=== PATIENT | female | born 1930 | race African-American/Black ===

== ENCOUNTER 2017-07-30 05:37 | Day surgery (SDC) | payer OTHER ==
[~2017-07-30] VITALS: Ht 162.6 cm; Wt 76.0 kg
[~2017-07-30 05:37] MED LIST: Aricept PO; Ascorbic Acid,Ester- PO; BIOTIN10 MG PO; CALCIUM 500 +1 EACH PO; CELEBREX200 MG PO; CENTRUM SILVER1 EAC3 PO; COUMADIN1 MG PO; COUMADIN3 MG PO; CRESTOR10 MG PO; Coumadin,Jantoven PO; DONEPEZIL HCL10 MG PO; Dulcolax PO; FISH OIL 1,0001 EA10 PO; Feosol PO; IRON325 M1 PO; LIDODERM 5% P1 PATCH TD; LISINOPRIL10 MG PO; LO-DOSE ASPIRIN81 M1 PO; Micro-K,K-Tab,K-Dur, PO; Miralax, Glycolax PO; OMEGA 3 1,0001 EACH PO; OXYCODONE HCL5 MG PO; Oscal 500 w/Vitamin PO; PHENYLEPHRINE HC LEFT EYE; PRAVASTATIN SOD40 MG PO; PRILOSEC20 MG PO; PRINIVIL10 MG PO; PriLOSEC PO; Senokot S,Pericolace PO; TYLENOL REGULA325 MG PO; Theragran PO; Zestoretic,Prinzide PO; [UNRECOGNIZED DRUG - OTHER] LEFT EYE; oxyCODONE PO
[2017-07-30 06:34] VITALS: BP 156/71
[2017-07-30 09:38] VITALS: BP 186/86
[2017-07-30 10:29] VITALS: BP 129/59
== END 2017-07-30 10:55 | disposition home or self-care (01) ==
LOC: SDC 05:37
DX: H35.342 Macular cyst, hole, or pseudohole, left eye (principal); H35.372 Puckering of macula, left eye; E78.5 Hyperlipidemia, unspecified; I11.9 Hypertensive heart disease without heart failure; G31.84 Mild cognitive impairment of uncertain or unknown etiology; I49.9 Cardiac arrhythmia, unspecified; I27.20 Pulmonary hypertension, unspecified; R94.31 Abnormal electrocardiogram [ECG] [EKG]; K21.9 Gastro-esophageal reflux disease without esophagitis; Z79.82 Long term (current) use of aspirin; Z86.73 Personal history of transient ischemic attack (TIA), and cerebral infarction without residual deficits
CPT/HCPCS: J0690; J2405; J3370

== ENCOUNTER 2017-11-06 21:17 | Observation (INO) | payer OTHER ==
[~2017-11-06] VITALS: Ht 162.6 cm; Wt 78.1 kg
[2017-11-06 22:44] LABS: HEMATOCRIT 32.5 % (36.0-46.0); HEMOGLOBIN 11.2 G/DL (11.9-15.5); MCH 31.5 PG (29.0-34.0); MCHC 34.5 G/DL (30.0-36.0); MCV 91.3 FL (83-99); PLATELET COUNT 256 K/uL (156-360); RBC DIS.WIDTH-CV 12.2 % (11.8-14.6); RBC DIS.WIDTH-SD 40.3 % (39-53); RED BLOOD COUNT 3.56 M/uL (3.80-5.20); WHITE BLOOD COUNT 6.8 K/uL (4.1-10.2)
[2017-11-06 22:54] LABS: CHLORIDE 106 mEq/L (99-109); POTASSIUM 4.5 mEq/L (3.7-5.4); SODIUM 140 mEq/L (136-147)
[2017-11-06 22:56] LABS: GLUCOSE 96 mg/dL (70-99)
[2017-11-06 23:00] LABS: CREATININE 1.1 mg/dL (0.6-1.3); GFR ESTIMATE (CALCULATED) > 59 mL/min/
[2017-11-06 23:01] LABS: UREA NITROGEN (BUN) 18 mg/dL (9-23)
[2017-11-06 23:07] LABS: TROP-I INTERPRETATION NEGATIVE; TROPONIN-I 0.02 ng/mL (0.0-0.30)
[2017-11-06 23:19] LABS: INTER. NORMALIZED RATIO 1.2
[2017-11-06 23:22] LABS: PTT 31.3 SEC (25-37)
[2017-11-07 00:17] LABS: HDL CHOLESTEROL 58 MG/DL (Desirable>=50); LDL CHOLESTEROL 127 mg/dL (Desirable<100); NON-HDL CHOLESTEROL 141 mg/dL (Desirable<160); TOTAL CHOLESTEROL 199 mg/dL (Desirable<200); TRIGLYCERIDES 68 MG/DL (Normal: <150)
[2017-11-07 00:49] LABS: APPEARANCE CLEAR ((CLEAR)); BILIRUBIN NEGATIVE; BLOOD NEGATIVE; COLOR STRAW ((YELLOW)); GLUCOSE (STRIP) NEGATIVE; KETONES NEGATIVE; LEUKOCYTES TRACE; NITRITE NEGATIVE; PROTEIN (STRIP) NEGATIVE; SPECIFIC GRAVITY 1.004 (1.000-1.030); UROBILINOGEN 0.2 MG/DL (0.2-1.0)
[2017-11-07] MEDS ORDERED: ROSUVASTATIN CA10 MG PO (00:57)
[2017-11-07] MEDS ORDERED: LOW DOSE ASPIRI81 M1 PO (00:57)
[2017-11-07 01:02] LABS: BACTERIA NONE SEEN /HPF; EPITHELIAL CELLS RARE /HPF; MUCUS NONE SEEN /LPF; RED BLOOD CELLS 0-5 /HPF (0-5); UCUL ADDED? NO; WHITE BLOOD CELLS 0-5 /HPF (0-5)
[2017-11-07 03:11] VITALS: BP 185/84
[2017-11-07 10:09] LABS: HEMOGLOBIN A1c (GLYCOHEMOGLOB) 5.2 % (Below 5.7)
[2017-11-07 12:14] VITALS: BP 236/101
[2017-11-07 13:12] VITALS: BP 145/67
[2017-11-07] MEDS ORDERED: ROBAXIN500 MG PO (14:05)
[2017-11-07] MEDS ORDERED: RELAFEN500 M1 PO (14:05)
== END 2017-11-07 15:50 | disposition home or self-care (01) ==
LOC: EME 21:17 → EDOF 11-07 01:15 → ENRESERV 11-07 01:18 → 5WEST 11-07 02:58
PROVIDERS: Emergency Medicine; Hospitalist; Physician Assistant
DX: M54.12 Radiculopathy, cervical region (principal); K21.9 Gastro-esophageal reflux disease without esophagitis; E78.5 Hyperlipidemia, unspecified; I10 Essential (primary) hypertension; I08.1 Rheumatic disorders of both mitral and tricuspid valves; I27.20 Pulmonary hypertension, unspecified; Z86.73 Personal history of transient ischemic attack (TIA), and cerebral infarction without residual deficits; Z82.3 Family history of stroke; Z82.49 Family history of ischemic heart disease and other diseases of the circulatory system; Z80.3 Family history of malignant neoplasm of breast; Z79.82 Long term (current) use of aspirin; G56.00 Carpal tunnel syndrome, unspecified upper limb; Z88.0 Allergy status to penicillin
CPT/HCPCS: 70450; 70551; 71046; 72125; 80048; 80061; 81003; 83036; 84484; 85027; 85610; 85730; 93005; 93306; 93880; 93971; 99281; 99284; G0378; G8978 GP CJ; G8979 GP CI; G8980 CJ; G8987 GO CH; G8987 GO CJ; G8989 CJ; J1644; J1885